=== PATIENT | male | born 1950 | race Hispanic/Latino ===

== ENCOUNTER → 2017-09-25 | Outpatient (CLI) | payer SELFPAY ==
[~2017-09-25] MED LIST: ASPI-555 PO; GADOBENATE DIMEGLUMINE 20 ML IV ONE; GLUC100019 PO; MULT-1203 PO
== END | disposition home or self-care (01) ==
LOC: RAH 07:38
PROVIDERS: ATTEND Radiology Diagnostic Radiology
DX: R10.9 Unspecified abdominal pain (principal)
CPT/HCPCS: 74183; A9577

== ENCOUNTER 2017-10-16 08:57 | Day surgery (SDC) | payer OTHER, SELFPAY ==
[~2017-10-16] VITALS: Ht 170.2 cm; Wt 94.1 kg
[2017-10-16 09:52] VITALS: BP 140/90
[2017-10-16] MEDS ORDERED: PROPOFOL 10 MG/ML 20ML VIAL IV ONE (10:17)
[2017-10-16] MEDS ORDERED: FENTANYL CITRATE PF 50 MCG/1 ML 2ML VIAL ONE (10:17)
[2017-10-16] MEDS ORDERED: SODIUM CHLORIDE 0.9% 1000ML 1,000 ML IV ONE (10:20)
[2017-10-16] MEDS ORDERED: GLUC100019 PO (10:23)
[2017-10-16] MEDS ORDERED: ASPI-555 PO (10:23)
[2017-10-16] MEDS ORDERED: MULT-1203 PO (10:23)
[2017-10-16 10:29] VITALS: BP 97/72
== END 2017-10-16 11:30 | disposition home or self-care (01) ==
LOC: DAH 08:57 → SUH 08:57
PROVIDERS: ATTEND Internal Medicine Gastroenterology
DX: K82.4 Cholesterolosis of gallbladder (principal); K82.8 Other specified diseases of gallbladder; Z98.890 Other specified postprocedural states; Z68.42 Body mass index [BMI] 45.0-49.9, adult; R93.3 Abnormal findings on diagnostic imaging of other parts of digestive tract
CPT/HCPCS: 43237; A4606; J2704; J3010; J7030; 43231